=== PATIENT | female | born 1980 ===

== ENCOUNTER 2019-02-28 09:42 | Emergency (ER) | payer BC ==
[2019-02-28 09:51] VITALS: BMI 16.8
[2019-02-28 09:55] VITALS: BP 99/77; PULSE 73; RESP 18; TEMP 98.3; O2SAT 99
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
== END 2019-02-28 11:00 | disposition home or self-care (01) ==
LOC: C.ER 09:42
DX: M79.602 Pain in left arm (principal)